=== PATIENT | male | born 1945 | race Caucasian/White ===

== ENCOUNTER → 2023-02-07 14:10 | Outpatient (CLI) | payer OTHER, SELFPAY ==
--- NOTE | 2023-02-07 | DI.ECHO.S_ITS ---
[facility] +---------+ : : [address] : [place] : : : : [id number] : : : : Phone: [phone] +---------+ Echocardiogram Report + + :Name: RAFAELA BAILEY Study Date: 02/07/2023 Height: 68 in : :[facility] ReadingLocation: Weight: 144 lb : : Gender: Male BSA: 1.8 m2 : :: 1945 Age: 77 yrs BP: 151/75 mmHg: :Reason For Study: CORONARY ARTERY DISEASE : :Ordering Physician: SASHA, : :MO Performed By: Liza Schwarz : :Referring: MO BAEZ : + + Interpretation Summary There is mild concentric left ventricular hypertrophy. The ejection fraction is estimated to be 40-45%. There is mild to moderate global hypokinesis of the left ventricle. The right ventricle is normal size. Right ventricular systolic function is mildly reduced. The left atrium is moderately dilated. The right atrium is mildly dilated. There is discrete nodular thickening of the non- coronary cusp. There is mild aortic regurgitation. There is mild mitral regurgitation. There is mild to moderate tricuspid regurgitation. Procedure: A two-dimensional transthoracic echocardiogram with color flow and Doppler was performed. The study quality was technically adequate. There is no prior echocardiogram noted for this patient. The patient was in sinus bradycardia with heart rates between 54-61 bpm during the exam. The patient had occasional PVCs during the exam. Left Ventricle: The left ventricle is normal in size. There is mild concentric left ventricular hypertrophy. The ejection fraction is estimated to be 40-45%. There is mild to moderate global hypokinesis of the left ventricle. Diastolic function could not be accurately assessed due to confounding valvular disease. Right Ventricle: The right ventricle is normal size. Right ventricular systolic function is mildly reduced. Atria: The left atrium is moderately dilated. The right atrium is mildly dilated. There is no Doppler evidence for an interatrial shunt. Mitral Valve: The mitral valve leaflets appear borderline thickened, but open well. There is mild mitral regurgitation. Aortic Valve: The aortic valve is mildly calcified. There is discrete nodular thickening of the non- coronary cusp. There is no aortic valve stenosis. There is mild aortic regurgitation. Tricuspid Valve: The tricuspid valve leaflets are thin and pliable. There is mild to moderate tricuspid regurgitation. The right ventricular systolic pressure is estimated to be at least 17 mmHg based on an estimated right atrial pressure of 3 mm Hg. Pulmonic Valve: The pulmonic valve leaflets are thin and pliable; valve motion is normal. There is mild pulmonic regurgitation. Great Vessels: The aortic root is normal size. The dimensions of the ascending aorta are normal. The IVC is of normal diameter and collapses greater than 50% with a sniff. This suggests a low right atrial pressure of 3 mm Hg. Pericardium/ Pleura There is no pericardial effusion. There is no pleural effusion. MMode/2D Measurements & Calculations LVIDd: 5.3 cm LVOT diam: 2.2 cm LVIDs: 4.5 cm Ao root diam: 3.8 cm FS: 16.1 % asc Aorta Diam: 3.5 cm EPSS: 1.4 cm Ao Arch Diam (Prox Trans): 3.1 cm IVSd: 1.2 cm LVPWd: 0.90 cm LV montiel. diameter/BSA (cm/m^2): 3.0 LV sys. diameter/BSA (cm/m^2): 2.5 LA A2 area: 28.7 cm2 RA long axis: 5.5 cm LA A4 area: 21.6 cm2 RA area: 20.6 cm2 LA length (vol): 5.8 cm RA vol: 65.4 ml LA vol: 91.3 ml RA : 36.8 ml/m2 LA vol index: 51.4 ml/m2 IVC diam: 1.7 cm RVD1 (basal): 4.0 cm RVD2 (mid): 3.1 cm TAPSE: 1.7 cm Doppler Measurements & Calculations Ao V2 max: 159.6 cm/sec LVOT Max Truman: 78.5 cm/sec Ao V2 mean: 109.8 cm/sec LV V1 max P.5 mmHg Ao max P.2 mmHg LV V1 VTI: 18.4 cm Ao mean P.3 mmHg NAM(I,D): 1.8 cm2 Ao V2 VTI: 41.4 cm NAM(V,D): 1.9 cm2 sev ratio: 0.44 NAM indexed to BSA (cm^2/m^2): 0.99 AI P1/2t: 406.8 msec AI dec slope: 266.4 cm/sec2 MV E max truman: 84.8 cm/sec TR max truman: 189.7 cm/sec MV A max truman: 55.2 cm/sec TR max P.4 mmHg MV E/A: 1.5 PA V2 max: 97.0 cm/sec Med Peak E' Truman: 3.7 cm/sec PA V2 mean: 67.6 cm/sec E/E' med: 22.8 PA mean P.0 mmHg Lat Peak E' Truman: 8.0 cm/sec PA pr(Accel): 27.6 mmHg E/E' lat: 10.7 E/e' average: 16.7 MV dec time: 0.21 sec SV(LVOT): 72.9 ml Electronically signed by: Brent Obrien on Reading Physician:02/07/2023 06:05 PM
== END ==
PROVIDERS: Referring Provider Ophthalmology; Visit Provider Ophthalmology
DX: I25.10 Atherosclerotic heart disease of native coronary artery without angina pectoris (principal); I51.7 Cardiomegaly; I35.1 Nonrheumatic aortic (valve) insufficiency; I08.1 Rheumatic disorders of both mitral and tricuspid valves
CPT/HCPCS: 93306